=== PATIENT | male | born 1940 | race Caucasian/White ===

== ENCOUNTER 2016-12-22 10:47 | Emergency (ER) | payer MEDICARE, OTHER ==
[~2016-12-22] VITALS: Ht 154.9 cm; Wt 76.8 kg
[~2016-12-22 10:47] MED LIST: AMLO5TAB2 PO; ASPI-973 PO; FOLI0.8T2 PO; HYDR-3825 PO; INSU100C8 SUBQ; INSU100V7 SUBQ; SEVE2.4P PO; SIMV10TA4 PO; [UNRECOGNIZED DRUG - CODE] PO
--- NOTE | 2016-12-22 10:54 | ED.REPORT ---
HPI-Altered Mental Status Date of Service Dec 22, 2016 ED Provider: Sam Bansal MD Pt is a 69 year old male with a history of ESRD, hyperparathyroidism, DM hypercholesterolemia, who presents to the ED via EMS with confusion at kidney dialysis onset prior to arrival. Pt was sent from kidney dialysis after he completed treatment with confusion, although pt states he is asymptomatic. He denies headache, chest pain, diaphoresis, SOB, fever, chills, numbness/tingling , focal weakness, dysuria, or any recent trauma. He also denies taking any new medication recently. Per EMS, pt was fatigued, SOB, and had an altered mental status post-dialysis. Nursing Notes Stated Complaint: CONFUSION Nursing Notes Reviewed: Yes ([facility] not reconciled) Allergies: Coded Allergies: Penicillins (Verified Allergy, Mild, Rash, 06/19/15) Scheduled Amlodipine (Amlodipine) 5 Mg Tablet 5 MG PO HS Aspirin (Aspirin) 81 Mg Tablet 81 MG PO DAILY Famotidine (Famotidine) 20 Mg Tablet 20 MG PO DAILY Folic Acid/Vitamin B Comp W-C (Nephro-Campos Tablet) 0.8 Mg Tablet 0.8 MG PO DAILY Insulin Aspart (NovoLOG U100 Insulin Vial) 100 U/Ml U 7-12 UNIT SUBQ 5XD Up to 5 times daily Insulin Glargine (Lantus U100 Insulin Vial) 100 Unit/Ml Vial 7 UNIT SUBQ BID Sevelamer Carbonate (Renvela) 2.4 Gm Powd.pack 2.4 GM PO TIDWM Simvastatin (Simvastatin) 10 Mg Tablet 10 MG PO HS Scheduled PRN Diphenhydramine HCl (Nyt-Time Sleep) 25 Mg Tablet 25 MG PO HS PRN PRN Insomnia Hydrocodone-Acetaminophen 7.5-325 mg (Hydrocodone-Acetaminophen 7.5-325 mg) 1 Each Tablet 1 TABLET PO Q8H PRN PRN For Pain Hydrocodone-Acetaminophen 7.5-325 mg (Hydrocodone-Acetaminophen 7.5-325 mg) 1 Each Tablet 1 TABLET PO TID PRN PRN For Pain General Time Seen by MD: 10:52 Chief Complaint Confused Hx Obtained From: Patient, EMS Arrived By: Ambulance Sudden in Onset?: Yes Onset Occurred: Just prior to arrival Severity: Current: No pain currently Severity: Maximum: No pain Related History: Reports Diabetes mellitus, Reports Hypertension, Reports Hyperthyroidism, Reports Renal failure Recent Healthcare: Recent doctor visit Similar Sx Previous: No Risk Factors )( IC Bleed Risk Strat Age (<1 yr or >60 yrs) RF Statements: Risk factors reviewed )( SAH Risk Stratification Hypertension RF Statements: Risk factors reviewed Past Medical History Past Medical History Kidney dialysis Anemia - ESRD Hyperparathyroidism End Stage Renal Disease Hypercholesterolemia Renal osteodystrophy Reports: Diabetes mellitus, Hypertension Family History noncontributory Smoking History Former Smoker Social History Alcohol Use: "Social" Drug Use: Denies drug use Other Social History: Occupation lives with , 2 story house, 3 steps to get into the house and 13 steps up to the 2nd floor Ambulatory Status Independent Review of Systems Constitutional: Denies: Chills, Fever Respiratory: Denies: Shortness of breath Cardiovascular: Denies: Chest pain Skin: Denies Diaphoresis Neurologic: Denies: Focal weakness, Headache, Numbness Psychiatric: Reports: Confusion (pt denies) Complete sys rev & neg: except as marked. Female: Denies: Dysuria Physical Exam Initial Vital Signs Vital Signs (First) Date Time Temp Pulse Resp B/P Pulse Ox O2 Delivery O2 Flow Rate FiO2 12/22/16 10:58 36.5 59 17 160/57 100 Nasal Cannula 2 Initial VS: Reviewed, Unavailable (none on chart, ordered) ENT: Mucous membranes moist, Conjunctiva normal Skin: Warm, Dry, No cyanosis General/Constitutional: Awake, Alert Sitting upright Good muscle tone with eyes closed Answering questions with eyes opened No complaints, cannot tell what happened at dialysis Head / Eyes: Atraumatic, Normocephalic, PERRL No signs of trauma Neck: Supple, Full range of motion Respiratory / Chest: Atraumatic, Breath sounds NL, Breath sounds = bilat, No respiratory distress Cardiovascular: Heart rate NL 3/6 systolic ejection murmur Neurologic: Speech NL States that the year is '77, but might be confused with '17 Knows day of week and month No focal deficits Completely resolved confusion Abdomen: Soft, Non-tender Upper Extremity / MS: Full range of motion, Neurologic intact, Vascular intact , No edema AV fistula on left arm Interpretation & Diagnostics Lab Results Interpretation Result Diagram: 12/22/16 1112 12/22/16 1112 Test 12/22/16 11:12 White Blood Count 5.7th/mm3 (3.8-10.1) Red Blood Count 3.21mil/mm3 (4.40-5.80) Hemoglobin 10.5g/dL (13.8-17.2) Hematocrit 31.2% (41.0-50.0) Mean Corpuscular Volume 97.2fL (81-100) Mean Corpuscular Hemoglobin 32.7pg (27.0-35.0) Mean Corpuscular Hemoglobin Concent 33.7% (32.0-37.0) Red Cell Distribution Width 15.3% (12.3-15.4) Platelet Count 176bil/L (150-400) Neutrophils (%) (Auto) 60.6% (40-74) Lymphocytes (%) (Auto) 20.4% (14-46) Monocytes (%) (Auto) 15.3% (4-12) Eosinophils (%) (Auto) 3.0% (0-5) Basophils (%) (Auto) 0.7% (0-3) Sodium Level 134mEq/L (134-144) Potassium Level 3.5mEq/L (3.5-5.2) Chloride Level 92mEq/L (97-108) Carbon Dioxide Level 29mmol/L (18-29) Blood Urea Nitrogen 15mg/dL (8-27) Creatinine 2.54mg/dL (0.76-1.27) Estimat Glomerular Filtration Rate 26mL/min (>59) Glucose Level 171mg/dL (60-99) Calcium Level 9.2mg/dL (8.5-10.1) Total Bilirubin 0.6mg/dL (0.0-1.2) Aspartate Amino Transf (AST/SGOT) 14U/L (0-50) Alanine Aminotransferase (ALT/SGPT) 12U/L (0-44) Alkaline Phosphatase 174U/L (25-160) Total Protein 7.1g/dL (6.4-8.4) Albumin 3.9g/dL (3.4-5.0) Lab Results Interpretation: CBC normal CMP renal insufficiency-lab status post dialysis, glucose normal Bloodc Cultures pending ECG Interpretation ECG Interpretation: Sinus bradycardia, rate 57 LVH with strain, more pronounced than previous EKG in 2008 Borderline first degree heart block Time: 11:05 Interpreted by: ED physician X-Ray Chest Interpretation Chest Xray Interpretation: IMPRESSION: Diffuse interstitial pulmonary opacities with more focal right basilar pulmonary opacities most consistent with edema or atypical infection. Dictated by: Jose G Banks M.D. on 12/22/2016 at 11:28 Approved by: Jose G Banks M.D. on 12/22/2016 at 11:30 View: Portable, 1 view Interpretation / Wet Read by: Interpret - Radiologist CT Head Interpretation IMPRESSION: 1. No acute intracranial abnormality. 2. Age-related atrophy and chronic deep white matter ischemic changes. Dictated by: Trung Jensen M.D. on 12/22/2016 at 12:11 Approved by: Trung Jensen M.D. on 12/22/2016 at 12:15 Study: Head CT no contrast Interpretation / Wet Read by: Interpret - Radiologist Re-Eval/Medical Decision Med Decision/Clinical Course This is a 76-year-old male chronic renal failure on hemodialysis he apparently finished his routine dialysis today, and appear had a brief period of 10-15 minutes of decreased responsiveness. Apparently during this. He had simply answer I'm okay to any questionable mass that was not interacting normally. There was no seizure activity, no other complaints, apparently vital signs are normal, Accu-Chek free mass was 140, and is transferred over to ED. On arrival here he is now answering questions and has no specific complaint, but can't really tell what happened or how or why he ended up in the emergency department. He is chronically ill, fatigued, cachectic, but is alert and oriented, answering questions and interacting leak, has no focal deficits. He does not appear toxic or acutely ill. He denies recent trauma. ED was normal. Blood work was normal. The patient remained stable. He had a friend come over states he appears to be at baseline. The patient no further events of decreased responsiveness. His chest x-ray is moderately abnormal, the patient has clear lungs, no respiratory symptoms, and is satting normally with no hypoxia. He has no cough. Blood cultures are been drawn given this. I called over to the dialysis center, I talked to the PCP-at this point a definitive cause of this episode is unclear. It is a reasonable chance is a family does note this been some mild anorexia and weight loss in recent weeks that he may have been slightly volume depleted and that following his dialysis he had a period of unresponsiveness related to this shifts that occur with dialysis. At this point that's my working theory, but his blood pressure and vitals are normal. He is at a slightly wishes to go home. I think this is reasonable. Routine and return precautions are reviewed. The patient does report that over the past number of months he's had some indigestion, his EKG is normal without ischemia, is no exertional component, reports typical "heartburn" he is out of medication periods have written a refill famotidine. He has not any symptoms today. He has no additional complaints. He is discharged in stable condition Source of Hx: Old records Re-Evaluation/Progress : Time of Eval: 13:55 Re-Evaluation/Progress Note: Patient rechecked. Discussed plan for discharge. Patient understands and agrees with plan. F/U instructions and RTER warnings given. All questions addressed at this time. 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 Rice, and updated him on his condition. Differential Diagnosis: Negative: Carbon monoxide poisoning, Closed head injury , Delirium tremens, Drug overdose, Dystonic reaction, Epidural hematoma, EtOH intoxication, Hypoglycemia, Hyponatremia, Hypoxemia, Intracerebral hemorrhage, Mass lesion, Sepsis, Uremia Counseled Regarding: Diagnosis, Lab results, Need for follow-up, When/why to return to ED Patient Discharge & Departure Impression: Primary Impression: Decreased responsiveness Disposition: Home Discharge Condition All VS Reviewed: Yes Condition: Stable Additional Instructions: 1. You were sent here because she had an episode of decreased responsiveness after finishing dialysis today. Fortunately that has resolved. Your testing versus department were normal, and a definitive for dangerous etiology was not determined. I suspect it may be into the fluid shift secondary to your dialysis. 2. Friends indicate you losing a little bit of appetite and weight-please work on trying to make sure he eats regularly 3. You can take famotidine 20 mg once a day (do not take twice a day as is normally dose, once a day dosing is appropriate for renal failure) if needed for your indigestion. 4. Return if new or worsening symptoms occur Referrals: Jon Rice MD (PCP) Scribe Attestation Portions of this note were transcribed by Isabel Deluna. I, Dr. Bansal, personally performed the history, physical exam and medical decision-making; I reviewed and confirmed the accuracy of the information in the transcribed note. Signed by: Rita Good, 12/22/16. copies to: Jon Rice MD, Matthew F MD Dec 22, 2016 10:54 Isabel Deluna Dec 22, 2016 11:11
[2016-12-22 10:58] VITALS: BP 160/57; PULSE 59; RESP 17; O2SAT 100
[2016-12-22 11:29] LABS: BASOPHILS % (AUTO) 0.7 % (0-3); MONOCYTES % (AUTO) 15.3 % (4-12); Mean Corpuscular Hemoglobin 32.7 pg (27.0-35.0); Mean Corpuscular Volume 97.2 fL (81-100); NEUTROPHILS % (AUTO) 60.6 % (40-74); Platelet Count 176 bil/L (150-400)
--- NOTE | 2016-12-22 11:32 | DRSVH ---
PROCEDURE: X-RAY CHEST ONE VIEW, PORTABLE ([id number]) INDICATIONS: SOB TECHNIQUE: One view of the chest was acquired. COMPARISON: [facility], CR, XR CHEST 1VW (PORTABLE), 03/07/2015, 21:34. FINDINGS: Surgical changes and devices: None. Lungs and pleura: Diffuse interstitial pulmonary opacities with more focal right basilar pulmonary op acities. Right basilar calcified granuloma. Trace right pleural effusion. No pneumothoraces. Mediastinum: Mediastinal contours appear normal. Heart size is normal. Bones and chest wall: No suspicious bony lesions. Overlying soft tissues appear unremarkable. IMPRESSION: Diffuse interstitial pulmonary opacities with more focal right basilar pulmonary opacitie s most consistent with edema or atypical infection. Dictated by: Jose G Banks M.D. on 12/22/2016 at 11:28 Approved by: Jose G Banks M.D. on 12/22/2016 at 11:30
--- NOTE | 2016-12-22 12:17 | DRSVH ---
PROCEDURE: CT BRAIN WITHOUT CONTRAST ([id number]) INDICATIONS: Altered LOC TECHNIQUE: Noncontrast 4.5 mm thick angled axial sections acquired from the foramen magnum to the vertex, with c oronal reformats. COMPARISON: CT brain 03/07/2015, 03/21/2014 FINDINGS: Image quality: Excellent. CSF spaces: Basal cisterns are patent. No extra-axial fluid collections. The ventricles are symmet amy in size and shape. Brain: No intracranial bleeds or masses. Benign calcifications in the basal ganglia, left greater th an right, unchanged. There is cerebral volume loss for age, with resultant ventricular and sulcal pro minence. There are periventricular and deep white matter chronic small vessel ischemic changes. The re is intracranial internal carotid artery atherosclerosis. Skull and face: Calvarium and visualized facial bones appear intact, without suspicious lesions. Sca ttered calcifications are noted within the scalp. Sinuses: Visualized sinuses again show small size and complete opacification of the left maxillary s inus, minimal mucous membrane thickening in the right maxillary sinus. The mastoids are clear. IMPRESSION: 1. No acute intracranial abnormality. 2. Age-related atrophy and chronic deep white matter ischemic changes. Dictated by: Trung Jensen M.D. on 12/22/2016 at 12:11 Approved by: Trung Jensen M.D. on 12/22/2016 at 12:15
[2016-12-22 13:10] VITALS: O2SAT 100
[2016-12-22] MEDS ORDERED: FAMO20TA4 PO (14:07)
== END 2016-12-22 14:24 | disposition home or self-care (01) ==
LOC: SED 10:47 → EDBD 10:47 → SED 14:24
DX: R40.4 Transient alteration of awareness (principal); R53.83 Other fatigue; R06.02 Shortness of breath; I12.0 Hypertensive chronic kidney disease with stage 5 chronic kidney disease or end stage renal disease; E11.22 Type 2 diabetes mellitus with diabetic chronic kidney disease; N18.6 End stage renal disease; Z99.2 Dependence on renal dialysis; Z79.82 Long term (current) use of aspirin; Z79.4 Long term (current) use of insulin; Z87.891 Personal history of nicotine dependence; Z88.0 Allergy status to penicillin